=== PATIENT | male | born 1990 | race African-American/Black ===

== ENCOUNTER 2022-07-16 23:43 | Emergency (ER) | payer MEDICAID ==
[~2022-07-16] VITALS: Ht 167.6 cm; Wt 70.0 kg
[2022-07-17] MEDS ORDERED: IBUP-2028 MT (01:55)
[2022-07-17] MEDS ORDERED: IBUPROFEN 400MG TABLET PO ONE (02:00)
[2022-07-17 02:17] VITALS: BP 121/85
== END 2022-07-17 02:42 | disposition home or self-care (01) ==
LOC: ER 23:43
DX: S20.212A Contusion of left front wall of thorax, initial encounter (principal); S60.512A Abrasion of left hand, initial encounter; M25.561 Pain in right knee; M25.532 Pain in left wrist; T65.892A Toxic effect of other specified substances, intentional self-harm, initial encounter; H57.89 Other specified disorders of eye and adnexa; Y35.893A Legal intervention involving other specified means, suspect injured, initial encounter; Y93.89 Activity, other specified; Y92.89 Other specified places as the place of occurrence of the external cause; Z65.3 Problems related to other legal circumstances
CPT/HCPCS: 71045; 73100; 73560; 99284; Z7610